=== PATIENT | female | born 1985 | race Hispanic/Latino ===

== ENCOUNTER 2021-12-13 07:01 | Day surgery (SDC) | payer MEDICAID ==
[~2021-12-13] VITALS: Ht 167.6 cm; Wt 115.7 kg
[2021-12-13] VITALS (9 sets, daily range): BP systolic 114–130; BP diastolic 71–82
[~2021-12-13 07:01] MED LIST: 0.9%NACL 1000ML 1,000 ML IV ONE; INSU100C6 SQ
[2021-12-13] MEDS ORDERED: PROPOFOL 10 MG/ML 20ML VIAL IV ONE (07:44)
== END 2021-12-13 09:40 | disposition home or self-care (01) ==
LOC: ENDO 07:01 → DAH 07:01 → ENDO 09:40
PROVIDERS: ATTEND Surgery
DX: K21.00 Gastro-esophageal reflux disease with esophagitis, without bleeding (principal); E11.9 Type 2 diabetes mellitus without complications; E66.01 Morbid (severe) obesity due to excess calories; K76.0 Fatty (change of) liver, not elsewhere classified; Z79.01 Long term (current) use of anticoagulants; Z79.899 Other long term (current) drug therapy; Z82.49 Family history of ischemic heart disease and other diseases of the circulatory system; Z83.3 Family history of diabetes mellitus; Z82.0 Family history of epilepsy and other diseases of the nervous system; Z98.890 Other specified postprocedural states; Z68.41 Body mass index [BMI] 40.0-44.9, adult; Z98.84 Bariatric surgery status
CPT/HCPCS: 43235; 71045; 81025; 82948 ×2; 87635; 93005; A4215 ×2; A4221; A4222; A4223; A4606; A4620; A4663; A6260; C9803; J3490; J7030; J2704

== ENCOUNTER → 2022-10-27 | Outpatient (CLI) | payer MEDICAID ==
[~2022-10-27] MED LIST changes: -0.9%NACL 1000ML 1,000 ML IV ONE
== END | disposition home or self-care (01) ==
LOC: RAH 08:36
PROVIDERS: ATTEND Internal Medicine Gastroenterology
DX: K80.20 Calculus of gallbladder without cholecystitis without obstruction (principal); R10.11 Right upper quadrant pain; R16.0 Hepatomegaly, not elsewhere classified
CPT/HCPCS: 74181

== ENCOUNTER 2023-03-08 20:31 | Emergency (ER) | payer MEDICAID ==
[~2023-03-08] VITALS: Ht 162.6 cm; Wt 63.5 kg
[2023-03-08 21:35] LABS: BASOPHILS # (AUTO) 0.03 K/uL (0.00-0.20); BASOPHILS % (AUTO) 0.4 % (0.0-5.0); EOSINOPHILS # (AUTO) 0.09 K/uL (0.00-0.70); EOSINOPHILS % (AUTO) 1.1 % (0.0-8.0); IMMATURE GRANULOCYTE ABSOLUTE 0.02 K/uL (0-1); LYMPHOCYTES # (AUTO) 2.4 K/uL (1.0-4.8); LYMPHOCYTES % (AUTO) 30.6 % (21.0-51.0); MEAN CORPUSCULAR HEMOGLOBIN 24.5 pg (27.0-33.0); MEAN CORPUSCULAR HGB CONC 30.6 g/dL (32.0-36.0); MONOCYTES # (AUTO) 0.7 K/uL (0.1-1.0); MONOCYTES % (AUTO) 8.8 % (3.0-13.0); NEUTROPHILS # (AUTO) 4.6 K/uL (1.8-7.7); NEUTROPHILS % (AUTO) 58.8 % (40.0-77.0); PLATELET COUNT (AUTO) 221 K/uL (130-400); RED CELL DISTRIBUTION WIDTH 15.4 % (11.0-15.5); WHITE BLOOD COUNT (AUTO) 7.9 K/uL (4.8-10.8)
[2023-03-08 21:47] LABS: CREATININE 0.8 mg/dL (0.5-1.5); POTASSIUM 3.6 mmol/L (3.5-5.1)
[2023-03-08 21:56] LABS: ALBUMIN 3.5 g/dL (3.5-5.0); BILIRUBIN,TOTAL 0.4 mg/dL (0.2-1.0); TOTAL PROTEIN, SERUM 7.6 g/dL (6.0-8.3)
[2023-03-08 22:29] LABS: APPEARANCE,URINE CLOUDY (CLEAR); BILIRUBIN,URINE NEGATIVE (NEGATIVE); COLOR,URINE YELLOW (YELLOW); GLUCOSE, URINE (UA) 500 mg/dL (NEGATIVE); KETONES,URINE NEGATIVE (NEGATIVE); LEUKOCYTE ESTERASE ,URINE 250 Leu/uL (NEGATIVE); NITRATE,URINE 2+ (NEGATIVE); OCCULT BLOOD,URINE LARGE (NEGATIVE); PH,URINE 5.5 (5.0-8.0); PROTEIN,URINE 30 mg/dL (NEGATIVE)
[2023-03-08 22:34] LABS: ADD UA MICROSCOPIC YES
[2023-03-08 23:26] LABS: BACTERIA,URINE RARE /HPF (None Seen); MUCUS,URINE FEW LPF (None Seen); RBC,URINE TNTC /HPF (0-1); SQUAMOUS EPITHELIAL CELL,UR FEW /HPF (0-2); WBC CLUMP FEW /HPF (0-1); WBC,URINE 26-50 /HPF (0-1); YEAST,URINE BUDDING FEW /HPF (None Seen)
[2023-03-09 02:44] VITALS: BP 117/69; PULSE 64; RESP 18; O2SAT 98
[2023-03-09] MEDS ORDERED: DIAZEPAM 5 MG/ML 2 ML SYG IVP ONE (03:00)
[2023-03-09] MEDS ORDERED: ASPIRIN 325MG TAB PO ONE (03:00)
[2023-03-09] MEDS ORDERED: MELO-106 PO (03:02)
== END 2023-03-09 03:17 | disposition home or self-care (01) ==
LOC: EDH 20:31
DX: R07.89 Other chest pain (principal); E10.8 Type 1 diabetes mellitus with unspecified complications
CPT/HCPCS: 36415; 71045; 80053; 81001; 82550; 83735; 84484; 85025; 87077; 87088; 87186; 93005